=== PATIENT | male | born 1980 | race Caucasian/White ===

== ENCOUNTER 2016-02-22 10:31 | Emergency (ER) | payer OTHER ==
--- NOTE | 2016-02-22 11:00 | Emergency Department Record ---
History of Present Illness - General Chief Complaint: Difficulty Breathing Stated Complaint: TATY/CHEST PAIN/COLD Time Seen by Provider: 02/22/16 11:00 Source: Patient Mode of Arrival: Ambulatory Limitations: No limitations - History of Present Illness Initial Comments: The patient is here with a one day hx of cough, congestion, and sputum production. He has been ill for about a month with a sinus infection and then yesterday developed a bad cough with colored sputum. He feels like his lungs are full and he is having intermittent TATY with congestion. He also is having chest burning when coughing and a mild pleuritic CP but denies any fever, chills , ODOM or sharp stabbing back pain. The patient does have a hx of mild asthma and feels like he is developing an attack. MD Complaint: Cough Onset/Timin -: Hour(s) Radiation: Other Severity scale (1-10): 4 Quality: Other Consistency: Intermittent Improves With: Nothing Worsens With: Nothing Known History Of: Asthma Context: Other Associated Symptoms: Chest pain, Cough, Nausea/vomiting, Sputum production, Other Treatments Prior to Arrival: Bronchodilator Treatment Prior to Arrival Comment:: Inhaler - Related Data Home Oxygen Therapy: No Home Medications Medication Instructions Recorded Confirmed Last Taken Lisinopril [Zestril] 10 mg PO DAILY 07/01/14 02/22/16 02/22/16 Multivitamin [Multi-Vitamin Daily] 1 each PO DAILY 08/06/14 02/22/16 02/22/16 Albuterol Sulfate [Ventolin Hfa] 1 - 2 puff IH .EVERY 4-6 HOURS PRN 02/22/1602/21/16 Previous Rx's Medication Instructions Recorded Doxycycline Monohydrate [Mondoxyne 100 mg PO BID #20 capsule 02/22/16 Nl] Prednisone [Prednisone 20Mg] 40 mg PO DAILY #8 tab 02/22/16 Allergies Allergy/AdvReac Type Severity Reaction Status Date / Time Sulfa (Sulfonamide Allergy ANAPHYLAXIS Verified 02/22/16 10:47 Antibiotics) Travel Screening - Travel/Exposure Within Last 30 Days Have you traveled within the last 30 days?: No Review of Systems Constitutional: Denies: Chills, Fever Eyes: Denies: Eye discharge ENT: Denies: Congestion Respiratory: Denies: Cough, Dyspnea Past Medical History - SOCIAL HISTORY Smoking Status: Never smoker Alcohol Use: None Drug Use: None - RESPIRATORY Hx Respiratory Disorders: Yes Hx Asthma: Yes (seasonal) Hx Bronchitis: Yes Comment:: frequent sinus infections - CARDIOVASCULAR Hx Cardio Disorders: Yes Hx Hypertension: Yes - NEURO Hx Neuro Disorders: Yes Hx Headaches: Yes (cluster) - GI Hx GI Disorders: No - Hx Genitourinary Disorders: No - ENDOCRINE Hx Endocrine Disorders: No - MUSCULOSKELETAL Hx Musculoskeletal Disorders: Yes Hx Back Injury: Yes - PSYCH Hx Psych Problems: No - HEMATOLOGY/ONCOLOGY Hx Hematology/Oncology Disorders: No Family Medical History Any Significant Family History?: Yes Hx Diabetes: Grandparents Hx Heart Disease: Grandparents Physical Exam - General General Appearance: Alert, Oriented x3, Cooperative, No acute distress - Head Head exam: Atraumatic, Normocephalic, Normal inspection - Eye Eye exam: Normal appearance, PERRL - ENT Throat exam: Tonsillar erythema, Tonsillomegaly. negative: Normal inspection, Tonsillar exudate, R peritonsillar mass, L peritonsillar mass - Neck Neck exam: Normal inspection, Full ROM. negative: Lymphadenopathy, Meningismus , Tenderness - Respiratory Respiratory exam: Normal lung sounds bilaterally. negative: Decreased breath sounds, Respiratory distress, Rhonchi, Stridor, Wheezes - Cardiovascular Cardiovascular Exam: Regular rate, Normal rhythm, Normal heart sounds, Tachycardia - GI/Abdominal GI/Abdominal exam: Soft, Normal bowel sounds. negative: Tenderness - Extremities Extremities exam: Normal inspection, Full ROM, Normal capillary refill. negative: Tenderness - Neurological Neurological exam: Alert, Normal gait, Oriented X3. negative: Abnormal gait, Motor sensory deficit Course Vital Signs 02/22/16 10:37 Temperature 98.4 F Pulse Rate 116 H Respiratory 16 Rate Blood Pressure 139/95 Pulse Ox 97 - Reevaluation(s) Reevaluation #1: The patient is doing better and states his chest discomfort is less with coughing. 02/22/16 12:57 Reevaluation #2: The patient is doing much better at this time. He denies any pain or discomfort at this time when not coughing. He is resting comfortably and feels comfortable going home. 02/22/16 13:12 Reevaluation #3: The patient is doing much better at this time. His BP is elevated but he has not taken his Lisinopril today and his HR is still elevated but I feel that is most likely due to his Duoneb treatment. He is resting and ambulating comfortably and feels MUCH better and is ready for home. The patient also now has a fever which could be adding to his tachycardia. He was instructed to take Tylenol at home. 02/22/16 13:20 02/22/16 13:23 Medical Decision Making - Data Complexity MDM Data: Labs Ordered and/or Reviewed, X-Ray Ordered and/or Reviewed, EKG Ordered and/or Reviewed - Lab Data Result diagrams: 02/22/16 11:22 02/22/16 10:50 - EKG Data -: EKG Interpreted by Me EKG: No Acute Changes - Radiology Data Radiology results: Report reviewed (CXR: Neg.) Disposition Disposition: Discharge Clinical Impression: Upper respiratory infection, acute Disposition: Home, Self-Care Condition: (1) Good Instructions: Upper Respiratory Infection (ED) Additional Instructions: Please continue your regular medicines. Take the Doxycycline and Prednisone as directed. Please see your PCP for recheck if not better in 3 days. Return to the ER for any increased pain, trouble breathing, fever or worsening cough. Prescriptions: Doxycycline Monohydrate [Mondoxyne Nl] 100 mg PO BID #20 capsule Prednisone [Prednisone 20Mg] 40 mg PO DAILY #8 tab Forms: Patient Portal Access Time of Disposition: 13:10
[2016-02-22] MEDS ORDERED: PREDNISONE 20 MG TAB PO ONE (11:19)
[2016-02-22] MEDS ORDERED: IPRATROPIUM/ALBUTEROL (0.5MG/3MG) NEB INH ONE (11:19)
[2016-02-22] MEDS ORDERED: 0.9 % SODIUM CHLORIDE 1,000 ML BAG IV ONE (11:26)
[2016-02-22 11:37] LABS: BASO % 1.1 % (0-6); EOS % 6.1 % (0-6); GRAN % 77.2 % (47-80); HEMATOCRIT 44.3 % (42.0-52.0); LYMPH % 8.3 % (16-45); MEAN CORPUSCULAR HEMOGLOBIN 28.8 pg (27-33); MEAN CORPUSCULAR HGB CONC 33.9 g/dl (32-36); MEAN PLATELET VOLUME 10.2 fl (7.4-10.4); MONO % 7.3 % (0-9); PLATELET COUNT 285 K/uL (130-400); RED BLOOD COUNT 5.21 M/uL (4.40-5.70); RED CELL DISTRIBUTION WIDTH 12.7 % (11.5-14.5); WHITE BLOOD COUNT W/O DIFF 9.5 K/uL (4.2-12.2)
[2016-02-22 11:40] LABS: ALB/GLOB RATIO 1.6 (1.1-1.8); ALBUMIN 4.4 gm/dL (3.5-5.0); ALKALINE PHOSPHATASE 81 U/L (38-126); ALT/SGPT 66 U/L (21-72); ANION GAP 15.2 (7-16); AST/SGOT 33 U/L (17-59); BLOOD UREA NITROGEN 9 mg/dL (9-20); CARBON DIOXIDE 23.8 mmol/L (22-30); CREATINE PHOSPHOKINASE 276 U/L (55-170); CREATININE 0.9 mg/dL (0.66-1.25); EST GLOMERULAR FILTRATION RATE > 60 ml/min; GLUCOSE,RANDOM 87 mg/dL (70-110); TOTAL PROTEIN 7.1 gm/dL (6.3-8.2)
[2016-02-22 11:55] LABS: TROPONIN I < 0.012 ng/mL (0.00-0.034)
[2016-02-22] MEDS ORDERED: ONDANSETRON HCL IV 4 MG/2 ML VIAL IVP ONE (12:28)
[2016-02-22] MEDS ORDERED: SUCRALFATE 1 G/10 ML UD PO ONE (12:28)
--- NOTE | 2016-02-26 07:40 | RADIOLOGY REPORT ---
EXAM: CHEST, TWO VIEWS HISTORY: COUGH. TECHNIQUE: Two views of the chest were obtained. Comparison: None. FINDINGS: The heart is not enlarged. The lungs and pleural spaces are clear. IMPRESSION: NO ACUTE CARDIOPULMONARY ABNORMALITY. JOB NUMBER: [id number] MTDD
== END 2016-02-22 13:23 | disposition home or self-care (01) ==
LOC: ER 10:31
DX: J06.9 Acute upper respiratory infection, unspecified (principal); R07.1 Chest pain on breathing; R11.2 Nausea with vomiting, unspecified; R05 Cough; I10 Essential (primary) hypertension
CPT/HCPCS: 99284 ×2; 96374; 82550; 85025; 82553; 84484; 80053; 85379; 71020; 94640; 93005; 93010; J2405; J7512; J7030

== ENCOUNTER 2016-02-24 06:56 | Emergency (ER) | payer OTHER ==
--- NOTE | 2016-02-24 07:20 | Emergency Department Record ---
History of Present Illness - General Chief Complaint: Cough Stated Complaint: COUGH/TATY Time Seen by Provider: 02/24/16 07:11 Source: Patient Mode of Arrival: Ambulatory Limitations: No limitations - History of Present Illness Initial Comments: 35 yo male presents with cough, congestion, drainage. He was seen in the ED on 02/21. He states he is not getting better yet. He continues to have low grade fevers, sore throat, cough with sputum. He did not have a Flu shot this year. He feels tired and lightheaded with standing or activity. It hurts to cough. Multiple other individuals have been sick with similar symptoms around him. PCP is Dr Arana. Complaint: Cough, Fever, Nasal congestion, Rhinorrhea, Sinus pain, Sore throat Onset/Timin -: Days(s) (3) Severity: Moderate Consistency: Constant Improves With: Nothing Worsens With: Other (cough) Associated Symptoms: Cough, Fever, Headache, Hoarseness, Myalgias, Nasal congestion, Rhinorrhea, Sore throat Treatments Prior to Arrival: Antibiotics - Related Data Home Medications Medication Instructions Recorded Confirmed Last Taken Lisinopril [Zestril] 10 mg PO DAILY 07/01/14 02/24/16 02/23/16 Multivitamin [Multi-Vitamin Daily] 1 each PO DAILY 08/06/14 02/24/16 02/23/16 Albuterol Sulfate [Ventolin Hfa] 1 - 2 puff IH .EVERY 4-6 HOURS PRN 02/22/1602/23/16 Previous Rx's Medication Instructions Recorded Doxycycline Monohydrate [Mondoxyne 100 mg PO BID #20 capsule 02/22/16 Nl] Prednisone [Prednisone 20Mg] 40 mg PO DAILY #8 tab 02/22/16 Ondansetron [Zofran Odt] 4 mg PO Q8H #20 tab.rapdis 02/24/16 Oseltamivir Phosphate [Tamiflu] 75 mg PO BID #10 capsule 02/24/16 Allergies Allergy/AdvReac Type Severity Reaction Status Date / Time Sulfa (Sulfonamide Allergy ANAPHYLAXIS Verified 02/24/16 07:09 Antibiotics) Travel Screening - Travel/Exposure Within Last 30 Days Have you traveled within the last 30 days?: No Review of Systems Constitutional: Reports: Chills, Fever, Malaise, Weakness Eyes: Denies: Eye discharge, Eye pain, Vision change ENT: Reports: Congestion, Throat pain Respiratory: Reports: Cough Cardiovascular: Reports: Chest pain (with coughing) Endocrine: Reports: Fatigue Gastrointestinal: Reports: Nausea. Denies: Abdominal pain, Diarrhea, Vomiting Genitourinary: Denies: Dysuria, Frequency, Hematuria Musculoskeletal: Reports: Myalgia. Denies: Arthralgia, Joint swelling, Neck pain Skin: Denies: Bruising, Change in color Neurological: Reports: Headache (sinus pressure). Denies: Confusion, Numbness, Paresthesias, Tremors, Weakness Hematological/Lymphatic: Denies: Anemia, Easy bleeding, Easy bruising, Swollen glands Past Medical History - SOCIAL HISTORY Smoking Status: Never smoker Alcohol Use: None Drug Use: None - RESPIRATORY Hx Respiratory Disorders: Yes Hx Asthma: Yes (seasonal) Hx Bronchitis: Yes Comment:: frequent sinus infections - CARDIOVASCULAR Hx Cardio Disorders: Yes Hx Hypertension: Yes - NEURO Hx Neuro Disorders: Yes Hx Headaches: Yes (cluster) - GI Hx GI Disorders: No - Hx Genitourinary Disorders: No - ENDOCRINE Hx Endocrine Disorders: No Hx Diabetes: No Hx Thyroid Disease: No - MUSCULOSKELETAL Hx Musculoskeletal Disorders: Yes Hx Back Injury: Yes - PSYCH Hx Psych Problems: No - HEMATOLOGY/ONCOLOGY Hx Hematology/Oncology Disorders: No Family Medical History Any Significant Family History?: Yes Hx Diabetes: Grandparents Hx Heart Disease: Grandparents Physical Exam - General General Appearance: Alert, Oriented x3, Cooperative, No acute distress Limitations: No limitations - Head Head exam: Atraumatic, Normal inspection - Eye Eye exam: Normal appearance, PERRL. negative: Conjunctival injection, Periorbital swelling - ENT ENT exam: Normal exam, Mucous membranes moist, Normal external ear exam, Normal orophraynx, TM's normal bilaterally Ear exam: Normal external inspection. negative: External canal tenderness Nasal Exam: Discharge Mouth exam: Normal external inspection, Tongue normal Teeth exam: Normal inspection. negative: Dental caries Throat exam: Tonsillar erythema. negative: Tonsillomegaly, Tonsillar exudate, R peritonsillar mass, L peritonsillar mass - Neck Neck exam: Normal inspection, Full ROM. negative: Tenderness - Respiratory Respiratory exam: Normal lung sounds bilaterally. negative: Accessory muscle use, Prolonged expiratory, Respiratory distress, Wheezes - Cardiovascular Cardiovascular Exam: Normal rhythm, Normal heart sounds, Tachycardia - GI/Abdominal GI/Abdominal exam: Soft. negative: Tenderness - Rectal Rectal exam: Deferred - exam: Deferred - Extremities Extremities exam: Normal inspection, Full ROM, Normal capillary refill. negative: Tenderness - Back Back exam: Reports: Normal inspection, Full ROM. Denies: Muscle spasm, Rash noted, Tenderness - Neurological Neurological exam: Alert, Normal gait, Oriented X3, Reflexes normal - Psychiatric Psychiatric exam: Normal affect, Normal mood - Skin Skin exam: Dry, Intact, Normal color, Warm Course Vital Signs 02/24/16 07:05 Temperature 99.1 F Pulse Rate [ 118 H Pulse Ox Probe] Respiratory 18 Rate Blood Pressure 133/92 [Left Arm] Pulse Ox 95 - Reevaluation(s) Reevaluation #1: The labs were reviewed No acute changes HR improved with IVF 02/24/16 07:57 EMR reviewed No acute changes on initial visit CXR 02/24/16 07:57 Reevaluation #2: He is Influenza A Positive 02/24/16 08:00 Reevaluation #3: The CXR was reviewed No acute changes from the prior DC home with precautions for influenza 02/24/16 08:22 Medical Decision Making - Lab Data Result diagrams: 02/24/16 07:26 02/24/16 07:26 Disposition Disposition: Discharge Clinical Impression: Influenza A Disposition: Home, Self-Care Condition: (1) Good Instructions: Influenza, Cardiology Consultant (GEN) Additional Instructions: Rest and stay well hydrated Return if worse You are contagious so cover cough, avoid close contacts, and wash hands frequently Prescriptions: Oseltamivir Phosphate [Tamiflu] 75 mg PO BID #10 capsule Ondansetron [Zofran Odt] 4 mg PO Q8H #20 tab.rapdis Forms: Patient Portal Access Time of Disposition: 08:03
[2016-02-24] MEDS ORDERED: ONDANSETRON HCL IV 4 MG/2 ML VIAL IVP ONE (07:22)
[2016-02-24] MEDS ORDERED: 0.9 % SODIUM CHLORIDE 1,000 ML BAG IV ONE (07:22)
[2016-02-24 07:34] LABS: BASO % 1.3 % (0-6); EOS % 6.4 % (0-6); GRAN % 65.5 % (47-80); HEMATOCRIT 45.4 % (42.0-52.0); LYMPH % 14.1 % (16-45); MEAN CELL VOLUME 86.5 fl (81-97); MEAN CORPUSCULAR HEMOGLOBIN 28.6 pg (27-33); MEAN PLATELET VOLUME 10.1 fl (7.4-10.4); MONO % 12.7 % (0-9); PLATELET COUNT 274 K/uL (130-400); RED BLOOD COUNT 5.25 M/uL (4.40-5.70); WHITE BLOOD COUNT W/O DIFF 8.6 K/uL (4.2-12.2)
[2016-02-24 07:46] LABS: ANION GAP 14.7 (7-16); BLOOD UREA NITROGEN 7 mg/dL (9-20); CARBON DIOXIDE 23.3 mmol/L (22-30); CREATININE 0.9 mg/dL (0.66-1.25); EST GLOMERULAR FILTRATION RATE > 60 ml/min; GLUCOSE,RANDOM 93 mg/dL (70-110)
[2016-02-24 07:50] LABS: INFLUENZA A POSITIVE (NEGATIVE); INFLUENZA B NEGATIVE (NEGATIVE); STREP A SCREEN NEGATIVE (NEGATIVE)
--- NOTE | 2016-02-27 09:24 | RADIOLOGY REPORT ---
EXAM: CHEST, TWO VIEWS HISTORY: COUGH AND FEVER. TECHNIQUE: Two views of the chest were obtained. Comparison: Chest x-ray 02/22/16. FINDINGS: The lungs are clear. The cardiomediastinal silhouette, diaphragm and osseous structures are unremarkable for age. IMPRESSION: NEGATIVE CHEST EXAMINATION. JOB NUMBER: [id number] MTDD
== END 2016-02-24 08:41 | disposition home or self-care (01) ==
LOC: ER 06:56
DX: J10.1 Influenza due to other identified influenza virus with other respiratory manifestations (principal); R51 Headache; I10 Essential (primary) hypertension
CPT/HCPCS: 99284 ×2; 96374; 85025; 80048; 87880; 87400; 71020; J2405; J7030

== ENCOUNTER 2017-10-03 08:15 | Emergency (ER) | payer OTHER ==
--- NOTE | 2017-10-03 08:44 | Emergency Department Record ---
History of Present Illness - General Chief complaint: Fatigue and Weakness Stated complaint: FATIGUE Time Seen by Provider: 10/03/17 08:37 Source: Patient Mode of Arrival: Ambulatory Limitations: No limitations - History of Present Illness Initial comments: 37 yo male presents with fatigue. He states over the weekend he has become more tired and no energy. The symptoms started Tuesday. He states today he had no energy after working this morning. He has some sinus congestion and drainage. He states he can get this way with his allergies. Mild non productive cough. No chest pain. No pain with inspiration. No calf pain or swelling. No abdominal pain. No nausea or vomiting. No sweating. No fevers or chills. Dr Arana is his PCP. He is a non smoker and rarely drinks alcohol. Onset/Timin -: Days(s) Severity: Moderate Severity scale (1-10): 4 Quality: Aching Consistency: Intermittent Improves with: Rest Worsens with: Exertion - Trevor Coma Scale Eye Response: (4) Open spontaneously Motor Response: (6) Obeys commands Verbal Response: (5) Oriented Tom Total: 15 - Related Data Home Medications Medication Instructions Recorded Confirmed Last Taken Albuterol Sulfate [Proair Hfa] 1 - 2 puff IH .EVERY 4-6 HOURS PRN 10/03/1710/03 Unknown Cetirizine HCl [Zyrtec] 10 mg PO DAILY 10/03/17 10/03/17 1 Day Ago ~10/02/17 Allergies Allergy/AdvReac Type Severity Reaction Status Date / Time Sulfa (Sulfonamide Allergy ANAPHYLAXIS Verified 10/03/17 08:30 Antibiotics) Travel Screening - Travel/Exposure Within Last 30 Days Have you traveled within the last 30 days?: No - Travel/Exposure Within Last Year Have you traveled outside the [place] in the last year?: No - Additonal Travel Details Have you been exposed to anyone with a communicable illness?: No - Travel Symptoms Symptom Screening: None Review of Systems Constitutional: Reports: Malaise, Weakness. Denies: Chills, Fever Eyes: Denies: Eye discharge, Eye pain, Vision change ENT: Reports: Congestion. Denies: Dental pain, Ear pain, Epistaxis, Throat pain Respiratory: Reports: Cough. Denies: Dyspnea, Hemoptysis, Stridor, Wheezes Cardiovascular: Denies: Arrhythmia, Chest pain, Dyspnea on exertion, Edema, Palpitations, Syncope Endocrine: Denies: Polydipsia, Polyuria Gastrointestinal: Denies: Abdominal pain, Diarrhea, Nausea, Vomiting Genitourinary: Denies: Dysuria, Frequency, Hematuria, Urgency Musculoskeletal: Denies: Arthralgia, Back pain, Joint swelling, Myalgia, Neck pain Skin: Denies: Bruising, Change in color, Lesions, Rash Neurological: Reports: Weakness (generalized). Denies: Abnormal gait, Confusion , Headache, Numbness, Tingling, Vertigo Psychiatric: Denies: Anxiety Hematological/Lymphatic: Denies: Blood Clots, Easy bleeding, Easy bruising, Swollen glands Past Medical History - SOCIAL HISTORY Smoking Status: Never smoker Alcohol Use: None, Rare Drug Use: None - RESPIRATORY Hx Respiratory Disorders: Yes Hx Asthma: Yes (seasonal) Hx Bronchitis: Yes Comment:: frequent sinus infections - CARDIOVASCULAR Hx Cardio Disorders: Yes Hx Hypertension: Yes - NEURO Hx Neuro Disorders: Yes Hx Headaches: Yes (cluster) - GI Hx GI Disorders: No - Hx Genitourinary Disorders: No - ENDOCRINE Hx Endocrine Disorders: No Hx Diabetes: No Hx Thyroid Disease: No - MUSCULOSKELETAL Hx Musculoskeletal Disorders: Yes Hx Back Injury: Yes - PSYCH Hx Psych Problems: No - HEMATOLOGY/ONCOLOGY Hx Hematology/Oncology Disorders: No Family Medical History Any Significant Family History?: Yes Hx Diabetes: Grandparents Hx Heart Disease: Grandparents Physical Exam - General General Appearance: Alert, Oriented x3, Cooperative, No acute distress Limitations: No limitations - Head Head exam: Atraumatic, Normal inspection - Eye Eye exam: Normal appearance, PERRL. negative: Conjunctival injection, Periorbital swelling, Scleral icterus - ENT ENT exam: Normal exam, Mucous membranes moist, Normal orophraynx Ear exam: Normal external inspection Nasal Exam: Discharge, Sinus tenderness. negative: Normal inspection, Active bleeding, Dried blood, Foreign body Mouth exam: Normal external inspection Teeth exam: Normal inspection Throat exam: Normal inspection - Neck Neck exam: Normal inspection, Full ROM. negative: Tenderness - Respiratory Respiratory exam: Normal lung sounds bilaterally. negative: Respiratory distress - Cardiovascular Cardiovascular Exam: Regular rate, Normal rhythm, Normal heart sounds. negative : Bradycardia, Diastolic murmur, Irregular rhythm, Systolic murmur, Tachycardia Peripheral Pulses: 2+: Radial (R), Radial (L) - GI/Abdominal GI/Abdominal exam: Soft. negative: Tenderness - Rectal Rectal exam: Deferred - exam: Deferred - Extremities Extremities exam: Normal inspection, Full ROM, Normal capillary refill. negative: Calf tenderness, Pedal edema, Tenderness - Back Back exam: Reports: Full ROM. Denies: CVA tenderness (R), CVA tenderness (L) - Neurological Neurological exam: Abnormal gait, Alert, CN II-XII intact, Normal gait, Oriented X3. negative: Altered, Motor sensory deficit, Reflexes normal - Psychiatric Psychiatric exam: Normal affect, Normal mood - Skin Skin exam: Dry, Intact, Normal color, Warm Course Vital Signs 10/03/17 08:19 Temperature 97.9 F Pulse Rate 85 Respiratory 18 Rate Blood Pressure 136/97 Pulse Ox 96 - Reevaluation(s) Reevaluation #1: The patient is well appearing Normal vitals. Normal HR, Temp, Pulse Ox. No tachycardia or hypoxia 10/03/17 08:55 EKG#1 0850 sinus rhythm rate is 78 intervals normal axis normal ST normal No acute changes on the EKG or new abnormal changes from prior 10/03/17 09:39 No acute changes on the CBC No acute changes on the CMP The TSH is normal 10/03/17 10:00 Waiting for UA 10/03/17 10:18 The UA is negative Stable for DC to follow up with his PCP We discussed reasons to return and close follow up with the PCP.after this ED visit Medical Decision Making - Lab Data Result diagrams: 10/03/17 08:40 10/03/17 08:40 Disposition Disposition: Discharge Clinical Impression: Fatigue Qualifiers: Fatigue type: unspecified Qualified Code(s): R53.83 - Other fatigue Disposition: Home, Self-Care Condition: (1) Good Instructions: Fatigue (ED) Additional Instructions: Rest and stay well hydrated today Call Dr Arana today for close follow up of your symptoms Return if worse or any new concerns that develop. Forms: Patient Portal Access Time of Disposition: 09:41 Quality - Quality Measures Quality Measures: N/A - Blood Pressure Screening Does Patient Have Any of the Following: Active Dx of HTN Blood Pressure Classification: Hypertensive Reading Systolic Measurement: 136 Diastolic Measurement: 97 Screening for High Blood Pressure: Patient Exclusion, Hx of HTN [G9744]
[2017-10-03 09:01] LABS: EOS % 9.5 % (0-6); GRAN % 57.7 % (47-80); HEMATOCRIT 45.8 % (42.0-52.0); HEMOGLOBIN 15.1 gm/dl (14.0-18.0); LYMPH % 25.6 % (16-45); MEAN CELL VOLUME 85.4 fl (81-97); MEAN CORPUSCULAR HEMOGLOBIN 28.2 pg (27-33); MEAN PLATELET VOLUME 9.6 fl (7.4-10.4); MONO % 6.2 % (0-9); PLATELET COUNT 302 K/uL (130-400); RED BLOOD COUNT 5.36 M/uL (4.40-5.70); RED CELL DISTRIBUTION WIDTH 13.1 % (11.5-14.5); WHITE BLOOD COUNT W/O DIFF 7.8 K/uL (4.2-12.2)
[2017-10-03 09:16] LABS: BLOOD UREA NITROGEN 11 mg/dL (6-20); CREATININE 0.8 mg/dL (0.7-1.2); EST GLOMERULAR FILTRATION RATE > 60 mL/min
[2017-10-03 09:17] LABS: TOTAL PROTEIN 6.6 g/dL (6.6-8.7)
[2017-10-03 09:19] LABS: GLUCOSE,RANDOM 93 mg/dL (74-109)
[2017-10-03 09:21] LABS: ALT/SGPT 42 U/L (<41); AST/SGOT 23 U/L (10.0-50.0)
[2017-10-03 09:22] LABS: ALB/GLOB RATIO 1.8 (1.1-1.8); ALBUMIN 4.2 g/dL (4.0-5.0); ALKALINE PHOSPHATASE 72 U/L (40-129)
[2017-10-03 09:35] LABS: THYROID STIMULATING HORMONE 2.14 uIU/mL (0.270-4.20)
[2017-10-03 10:14] LABS: URINE APPEARANCE CLEAR; URINE BILIRUBIN NEGATIVE (NEGATIVE); URINE BLOOD NEGATIVE (NEGATIVE); URINE COLOR YELLOW; URINE GLUCOSE (UA) NEGATIVE (NEGATIVE); URINE KETONE NEGATIVE (NEGATIVE); URINE LEUKOCYTE ESTERASE NEGATIVE (NEGATIVE); URINE NITRITE NEGATIVE (NEGATIVE); URINE PROTEIN NEGATIVE (NEGATIVE); URINE UROBILINOGEN 0.2 E.U./dL (0.20 - 1.00)
--- NOTE | 2017-10-04 20:24 | RADIOLOGY REPORT ---
EXAM: CHEST 2 VIEWS HISTORY: PAINFUL INSPIRATION. FATIGUE. TECHNIQUE: Upright PA and lateral views of the chest are obtained. COMPARISON: Two-view chest radiographic examination dated 11/20/2016. FINDINGS: The heart is not enlarged and the pulmonary vasculature is nondilated. No definite new abnormal lung parenchymal opacity is seen, given differences in technique. No costophrenic angle blunting or pneumothorax. Mild degenerative endplate changes within the lower thoracic spine. IMPRESSION: NO CONVINCING RADIOGRAPHIC EVIDENCE OF ACUTE CARDIOPULMONARY DISEASE WITHOUT SIGNIFICANT CHANGE FROM 11/20/2016, GIVEN DIFFERENCES IN TECHNIQUE. JOB NUMBER: [id number] MTDD
== END 2017-10-03 10:31 | disposition home or self-care (01) ==
LOC: ER 08:15
DX: R53.83 Other fatigue (principal); R53.1 Weakness; I10 Essential (primary) hypertension
CPT/HCPCS: 71046; 80053; 81003; 84443; 85025; 93005; 93010; 99284

== ENCOUNTER 2018-12-09 18:18 | Emergency (ER) | payer OTHER ==
--- NOTE | 2018-12-09 18:25 | Emergency Department Record ---
History of Present Illness - General Chief complaint: Allergic Reaction Stated complaint: RACTION TO MEDS Time Seen by Provider: 12/09/18 18:19 Source: Patient Mode of Arrival: Ambulatory Limitations: No limitations - History of Present Illness Initial Comments: 38 yo male presents to ED for evaluation of progressively worsening swelling to the lower extremities bilaterally following an increase in the patient's Lisinopril 3 weeks ago. Patient denies shortness of breath or chest discomfort symptoms. Patient denies history of DVT or calf pain symptoms, just reports swelling from edema bilaterally. Patient denies health problems other than HTN. MD Complaint: Other Onset/Timin -: Week(s) Exposure: Medication Severity: Moderate Treatment Prior to Arrival: None Previous Allergy History: None - Related Data Previous Rx's Medication Instructions Recorded Furosemide [Lasix] 40 mg PO DAILY #5 tablet 12/09/18 Allergies Allergy/AdvReac Type Severity Reaction Status Date / Time Sulfa (Sulfonamide Allergy ANAPHYLAXIS Verified 12/09/18 18:27 Antibiotics) Review of Systems Constitutional: Denies: Chills, Fever, Malaise, Night sweats Eyes: Denies: Eye discharge, Eye pain ENT: Denies: Congestion, Ear pain, Epistaxis Respiratory: Denies: Cough, Dyspnea Cardiovascular: Reports: Edema. Denies: Chest pain, Dyspnea on exertion Endocrine: Denies: Fatigue, Heat or cold intolerance Gastrointestinal: Denies: Abdominal pain, Nausea, Vomiting Musculoskeletal: Denies: Arthralgia, Back pain Skin: Denies: Bruising, Change in color, Rash Neurological: Denies: Abnormal gait, Confusion, Headache, Tingling, Tremors Psychiatric: Denies: Anxiety Hematological/Lymphatic: Denies: Anemia, Blood Clots Past Medical History - SOCIAL HISTORY Smoking Status: Never smoker Drug Use: None - RESPIRATORY Hx Respiratory Disorders: Yes Hx Asthma: Yes (seasonal) Hx Bronchitis: Yes Comment:: frequent sinus infections - CARDIOVASCULAR Hx Cardio Disorders: Yes Hx Hypertension: Yes - NEURO Hx Neuro Disorders: Yes Hx Headaches: Yes (cluster) - GI Hx GI Disorders: No - Hx Genitourinary Disorders: No - ENDOCRINE Hx Endocrine Disorders: No Hx Diabetes: No Hx Thyroid Disease: No - MUSCULOSKELETAL Hx Musculoskeletal Disorders: Yes Hx Back Injury: Yes - PSYCH Hx Psych Problems: No - HEMATOLOGY/ONCOLOGY Hx Hematology/Oncology Disorders: No Family Medical History Hx Diabetes: Grandparents Hx Heart Disease: Grandparents Physical Exam - General General Appearance: Alert, Oriented x3, Cooperative, No acute distress Limitations: No limitations - Head Head exam: Atraumatic, Normocephalic, Normal inspection Head exam detail: negative: Abrasion, Contusion, Diaz's sign, General tenderness, Hematoma, Laceration - Eye Eye exam: Normal appearance. negative: Conjunctival injection, Periorbital swelling, Periorbital tenderness, Scleral icterus - ENT Ear exam: negative: Auricular hematoma, Auricular trauma Nasal Exam: negative: Active bleeding, Discharge, Dried blood, Foreign body Mouth exam: negative: Drooling, Laceration, Muffled voice, Tongue elevation - Neck Neck exam: Normal inspection. negative: Meningismus, Tenderness - Respiratory Respiratory exam: Normal lung sounds bilaterally. negative: Respiratory distress, Rhonchi, Stridor, Wheezes - Cardiovascular Cardiovascular Exam: Regular rate, Normal rhythm, Normal heart sounds - GI/Abdominal GI/Abdominal exam: Soft. negative: Rebound, Rigid, Tenderness - Rectal Rectal exam: Deferred - exam: Deferred - Extremities Extremities exam: Pedal edema (2+ lower extremity edema bilaterally). negative: Calf tenderness, Tenderness - Back Back exam: Denies: CVA tenderness (R), CVA tenderness (L) - Neurological Neurological exam: Alert, Normal gait, Oriented X3 - Psychiatric Psychiatric exam: Normal affect, Normal mood - Skin Skin exam: Normal color. negative: Abrasion Type of lesion: negative: abrasion Course - Reevaluation(s) Reevaluation #1: 12/09/18 18:54 Laboratory studies were reviewed and appear grossly unremarkable for an acute process. Will initiate Lasix as directed. Patient appears stable for discharge at this time with instructions to follow-up with Dr. Arana in 3-5 days as directed. Medical Decision Making - Lab Data Result diagrams: 12/09/18 18:30 12/09/18 18:30 Disposition Disposition: Discharge Clinical Impression: Peripheral edema Hypertension Qualifiers: Hypertension type: unspecified Qualified Code(s): I10 - Essential (primary) hypertension Disposition: Home, Self-Care Condition: (2) Stable Instructions: Leg Edema (ED) Additional Instructions: Return to ED if your symptoms worsen or if you have any concerns. Lasix as directed. Elevated the lower extremities to reduce swelling. Follow-up with Dr. Arana in 3-5 days as directed. Prescriptions: Furosemide [Lasix] 40 mg PO DAILY #5 tablet Forms: Patient Portal Access Time of Disposition: 18:56 Quality - Quality Measures Quality Measures: N/A - Blood Pressure Screening Does Patient Have Any of the Following: Active Dx of HTN Blood Pressure Classification: Hypertensive Reading Systolic Measurement: 140 Diastolic Measurement: 109 Screening for High Blood Pressure: Patient Exclusion, Hx of HTN [G9744]
[2018-12-09 18:38] LABS: ABSOLUTE NEUTROPHIL COUNT 5.96; EOS % 7.6 % (0-6); GRAN % 56.7 % (47-80); HEMATOCRIT 45.6 % (42.0-52.0); HEMOGLOBIN 14.9 gm/dl (14.0-18.0); MEAN CORPUSCULAR HEMOGLOBIN 27.4 pg (27-33); MEAN CORPUSCULAR HGB CONC 32.7 g/dl (32-36); MEAN PLATELET VOLUME 9.6 fl (7.4-10.4); MONO % 8.7 % (0-9); PLATELET COUNT 363 K/uL (130-400); RED BLOOD COUNT 5.43 M/uL (4.40-5.70); RED CELL DISTRIBUTION WIDTH 13.6 % (11.5-14.5); WHITE BLOOD COUNT W/O DIFF 10.5 K/uL (4.2-12.2)
[2018-12-09 18:50] LABS: BLOOD UREA NITROGEN 11 mg/dL (6-20); CREATININE 0.8 mg/dL (0.7-1.2); EST GLOMERULAR FILTRATION RATE > 60 mL/min
[2018-12-09 18:52] LABS: GLUCOSE,RANDOM 92 mg/dL (74-109)
[2018-12-09] MEDS ORDERED: FUROSEMIDE 40 MG TABLET PO ONE (18:56)
== END 2018-12-09 19:04 | disposition home or self-care (01) ==
LOC: ER 18:18
DX: R60.0 Localized edema (principal); I10 Essential (primary) hypertension
CPT/HCPCS: 80048; 85025; 99283

== ENCOUNTER 2019-02-12 07:31 | Emergency (ER) | payer BC, OTHER ==
--- NOTE | 2019-02-12 07:44 | Emergency Department Record ---
History of Present Illness - General Chief complaint: Extremity Problem Stated complaint: THUMB INJURY Time Seen by Provider: 02/12/19 07:37 Source: Patient Mode of Arrival: Ambulatory Limitations: No limitations - History of Present Illness Initial comments: The patient is here due to a one day hx of R hand pain. He tripped on the stairs last evening and injured his hand and jammed his R thumb. It is mainly painful over the 1st MCP area and the web space between the 1st and 2nd MC bones. MD Complaint: Extremity pain Onset/Timin -: Days(s) Location: Right, Hand History of Same: No Radiation: None Severity scale (1-10): 8 Quality: Aching Consistency: Constant Improves with: Nothing Worsens with: Weight bearing Associated Symptoms: Denies other symptoms - Related Data Home Medications Medication Instructions Recorded Confirmed Last Taken Furosemide [Lasix] 20 mg PO DAILY 02/12/19 02/12/19 Unknown Potassium Chloride [Klor-Con] 10 meq PO DAILY 02/12/19 02/12/19 Unknown Allergies Allergy/AdvReac Type Severity Reaction Status Date / Time Sulfa (Sulfonamide Allergy ANAPHYLAXIS Verified 12/09/18 18:27 Antibiotics) Travel Screening - Travel/Exposure Within Last 30 Days Have you traveled within the last 30 days?: No Review of Systems Constitutional: Denies: Chills, Fever Past Medical History - SOCIAL HISTORY Smoking Status: Never smoker - RESPIRATORY Hx Respiratory Disorders: Yes Hx Asthma: Yes (seasonal) Hx Bronchitis: Yes Comment:: frequent sinus infections - CARDIOVASCULAR Hx Cardio Disorders: Yes Hx Hypertension: Yes - NEURO Hx Neuro Disorders: Yes Hx Headaches: Yes (cluster) - GI Hx GI Disorders: No - Hx Genitourinary Disorders: No - ENDOCRINE Hx Endocrine Disorders: No Hx Diabetes: No Hx Thyroid Disease: No - MUSCULOSKELETAL Hx Musculoskeletal Disorders: Yes Hx Back Injury: Yes - PSYCH Hx Psych Problems: No - HEMATOLOGY/ONCOLOGY Hx Hematology/Oncology Disorders: No Family Medical History Any Significant Family History?: Yes Hx Diabetes: Grandparents Hx Heart Disease: Grandparents Physical Exam - General General Appearance: Alert, Oriented x3, Cooperative, No acute distress - Head Head exam: Atraumatic, Normocephalic - Eye Eye exam: Normal appearance - Extremities Extremities exam: Normal inspection (There is no R hand swelling, bruising, or abrasions.), Full ROM (with pain over the R thumb and 2nd finger.), Normal cap illary refill, Tenderness (There is diffuse tenderness over the R 1st and 2nd MC bones. There is tenderness over the R 1st MCP joint ulnar collateral ligament but the joint does not appear to open up. ). negative: Joint swelling - Neurological Neurological exam: Alert. negative: Motor sensory deficit Course Vital Signs 02/12/19 07:32 Temperature 98.1 F Pulse Rate 93 H Respiratory 18 Rate Blood Pressure 133/96 Pulse Ox 96 - Reevaluation(s) Reevaluation #1: The patient's xrays are neg and he clearly has a R hand sprain. I did explain to him that I am worried about his R hand ulnar collateral ligament. The joint clearly does not appear to open up but I would like to splint the thumb for a week and have the joint rechecked by his PCP. If pain continues he may need to see a hand specialist. The patient is aware of the issues and will F/U. 02/12/19 08:38 Medical Decision Making - Data Complexity MDM Data: X-Ray Ordered and/or Reviewed - Radiology Data Radiology results: Report reviewed (R hand: Neg.) Disposition Disposition: Discharge Clinical Impression: Sprain of hand, right Qualifiers: Encounter type: initial encounter Qualified Code(s): S63.91XA - Sprain of unspecified part of right wrist and hand, initial encounter Disposition: Home, Self-Care Condition: (2) Stable Instructions: Hand Sprain (ED) Additional Instructions: Please use Tylenol or Motrin for pain and wear the splint for a week. Please have the R hand ligaments rechecked at the end of the week and have the 1st MCP ulnar collateral ligament re-evaluated then. Return to the ER for any worsening issues. Forms: Patient Portal Access Time of Disposition: 08:36 Quality - Quality Measures Quality Measures: N/A - Blood Pressure Screening View Details: Yes Does Patient Have Any of the Following: No Blood Pressure Classification: Hypertensive Reading Systolic Measurement: 133 Diastolic Measurement: 96 Screening for High Blood Pressure: < First Hypertensive BP, F/U Documented > [G8950] First Hypertensive Follow-up Interventions: Referral to alternative/primary care provider.
--- NOTE | 2019-02-12 08:30 | RADIOLOGY REPORT ---
EXAMINATION: Right Hand, Minimum Three Views EXAM DATE: 02/12/2019 8:23 AM TECHNIQUE: PA, lateral, and oblique INDICATION: Thumb injury COMPARISON: None ENCOUNTER: Initial FINDINGS: No acute fracture or dislocation evident. No significant degenerative spurring appreciated. IMPRESSION: No acute fracture. Dictated by: Edwardo Rico MD on 02/12/2019 8:25 AM. .
== END 2019-02-12 08:40 | disposition home or self-care (01) ==
LOC: ER 07:31
DX: S63.91XA Sprain of unspecified part of right wrist and hand, initial encounter (principal); W10.9XXA Fall (on) (from) unspecified stairs and steps, initial encounter; I10 Essential (primary) hypertension
CPT/HCPCS: 99283

== ENCOUNTER 2019-03-21 08:15 | Emergency (ER) | payer BC ==
--- NOTE | 2019-03-21 08:42 | Emergency Department Record ---
History of Present Illness - General Chief complaint: Vomiting Stated complaint: VOMITING Time Seen by Provider: 03/21/19 08:34 Source: Patient, RN notes reviewed Mode of Arrival: Ambulatory - History of Present Illness Initial comments: cough for 7 days and vomitied today times one and no diarrhea and he took alot of medication and his protein shake and vomited his has had vomiting and diarrhea all night and she is much worse than he is. He said he is here for his but he wanted to be checked too. He was up all night with his . Associated Symptoms: Cough, Nausea/vomiting - Related Data Home Medications Medication Instructions Recorded Confirmed Last Taken Naltrexone HCl/Bupropion HCl 1 each PO DAILY 03/21/19 03/21/19 03/21/19 [Contrave ER 8-90 mg Tablet] Allergies Allergy/AdvReac Type Severity Reaction Status Date / Time Sulfa (Sulfonamide Allergy ANAPHYLAXIS Verified 03/21/19 08:27 Antibiotics) Travel/Exposure Screening - Travel/Exposure Within Last 30 Days Have you traveled within the last 30 days?: No Review of Systems Reviewed: No additional complaints except as noted below Constitutional: Reports: As per HPI. Denies: Chills, Fever, Malaise, Night sweats, Weakness, Weight change Eyes: Reports: As per HPI. Denies: Eye discharge, Eye pain, Photophobia, Vision change ENT: Reports: As per HPI, Congestion. Denies: Dental pain, Ear pain, Epistaxis, Hearing loss, Throat pain Respiratory: Reports: As per HPI, Cough. Denies: Dyspnea, Hemoptysis, Stridor, Wheezes Cardiovascular: Reports: As per HPI. Denies: Arrhythmia, Chest pain, Dyspnea on exertion, Edema, Murmurs, Orthopnea, Palpitations, Paroxysmal nocturnal dyspnea, Rheumatic Fever, Syncope Endocrine: Reports: As per HPI. Denies: Fatigue, Heat or cold intolerance, Polydipsia, Polyuria Gastrointestinal: Reports: As per HPI, Vomiting. Denies: Abdominal pain, Constipation, Diarrhea, Hematemesis, Hematochezia, Melena, Nausea Genitourinary: Reports: As per HPI. Denies: Dysuria, Frequency, Hematuria, Incontinence, Retention, Testicular pain, Testicular mass, Urgency Musculoskeletal: Reports: As per HPI. Denies: Arthralgia, Back pain, Gout, Joint swelling, Myalgia, Neck pain Skin: Reports: As per HPI. Denies: Bruising, Change in color, Change in hair/nails, Lesions, Pruritus, Rash Neurological: Reports: As per HPI. Denies: Abnormal gait, Confusion, Headache, Numbness, Paresthesias, Seizure, Tingling, Tremors, Vertigo, Weakness Psychiatric: Reports: As per HPI. Denies: Anxiety, Auditory hallucinations, Depression, Homicidal thoughts, Suicidal thoughts, Visual hallucinations Hematological/Lymphatic: Reports: As per HPI. Denies: Anemia, Blood Clots, Easy bleeding, Easy bruising, Swollen glands Past Medical History - SOCIAL HISTORY Smoking Status: Never smoker Alcohol Use: None Drug Use: None - RESPIRATORY Hx Respiratory Disorders: Yes Hx Asthma: Yes (seasonal) Hx Bronchitis: Yes Comment:: frequent sinus infections - CARDIOVASCULAR Hx Cardio Disorders: Yes Hx Hypertension: Yes - NEURO Hx Neuro Disorders: Yes Hx Headaches: Yes (cluster) - GI Hx GI Disorders: No - Hx Genitourinary Disorders: No - ENDOCRINE Hx Endocrine Disorders: No Hx Diabetes: No Hx Thyroid Disease: No - MUSCULOSKELETAL Hx Musculoskeletal Disorders: Yes Hx Back Injury: Yes - PSYCH Hx Psych Problems: No - HEMATOLOGY/ONCOLOGY Hx Hematology/Oncology Disorders: No Family Medical History Any Significant Family History?: Yes Hx Diabetes: Grandparents Hx Heart Disease: Grandparents Physical Exam - General General Appearance: Alert, Oriented x3, Cooperative, No acute distress - Head Head exam: Normal inspection - Eye Eye exam: Normal appearance, PERRL Pupils: Normal accommodation - ENT ENT exam: Normal exam, Mucous membranes moist, Normal external ear exam, Normal orophraynx, TM's normal bilaterally Ear exam: Normal external inspection. negative: External canal tenderness Nasal Exam: Normal inspection. negative: Discharge, Sinus tenderness Mouth exam: Normal external inspection, Tongue normal Teeth exam: Normal inspection. negative: Dental caries Throat exam: Normal inspection. negative: Tonsillar erythema, Tonsillar exudate - Neck Neck exam: Normal inspection, Full ROM. negative: Tenderness - Respiratory Respiratory exam: Normal lung sounds bilaterally. negative: Respiratory distress - Cardiovascular Cardiovascular Exam: Regular rate, Normal rhythm, Normal heart sounds - GI/Abdominal GI/Abdominal exam: Soft, Normal bowel sounds. negative: Tenderness - Rectal Rectal exam: Deferred - exam: Deferred - Extremities Extremities exam: Normal inspection, Full ROM, Normal capillary refill. negative: Tenderness - Back Back exam: Reports: Normal inspection, Full ROM. Denies: Muscle spasm, Rash noted, Tenderness - Neurological Neurological exam: Alert, Normal gait, Oriented X3, Reflexes normal - Psychiatric Psychiatric exam: Normal affect, Normal mood - Skin Skin exam: Dry, Intact, Normal color, Warm Course Vital Signs 03/21/19 08:23 Temperature 98.1 F Pulse Rate 80 Respiratory 16 Rate Blood Pressure 130/87 Pulse Ox 95 Disposition Clinical Impression: Viral syndrome Disposition: Home, Self-Care Condition: (1) Good Instructions: Gastroenteritis (ED), Acute Nausea and Vomiting (ED) Additional Instructions: follow up with family Dr in 5 days sooner if worse tylenol or motrin for pain Forms: Patient Portal Access Time of Disposition: 09:12 Quality - Quality Measures Quality Measures: N/A - Blood Pressure Screening Does Patient Have Any of the Following: No Blood Pressure Classification: Pre-Hypertensive BP Reading Systolic Measurement: 130 Diastolic Measurement: 87 Screening for High Blood Pressure: < Pre-Hypertensive BP, F/U Documented > [G8950] Pre-Hypertensive Follow-up Interventions: Referral to alternative/primary care provider.
[2019-03-21] MEDS ORDERED: ONDANSETRON 4 MG ODT TABLET SL ONE (08:43)
[2019-03-21 08:55] LABS: INFLUENZA A NEGATIVE (NEGATIVE)
[2019-03-21 08:56] LABS: INFLUENZA B NEGATIVE (NEGATIVE)
--- NOTE | 2019-03-21 09:56 | Emergency Department Record ---
History of Present Illness - General Chief complaint: Vomiting Stated complaint: VOMITING Time Seen by Provider: 03/21/19 08:34 Source: Patient, RN notes reviewed Mode of Arrival: Ambulatory - History of Present Illness Associated Symptoms: Cough, Nausea/vomiting - Related Data Home Medications Medication Instructions Recorded Confirmed Last Taken Naltrexone HCl/Bupropion HCl 1 each PO DAILY 03/21/19 03/21/19 03/21/19 [Contrave ER 8-90 mg Tablet] Previous Rx's Medication Instructions Recorded Ondansetron HCl [Zofran] 4 mg PO RESP.BID #14 tablet 03/21/19 Allergies Allergy/AdvReac Type Severity Reaction Status Date / Time Sulfa (Sulfonamide Allergy ANAPHYLAXIS Verified 03/21/19 08:27 Antibiotics) Travel/Exposure Screening - Travel/Exposure Within Last 30 Days Have you traveled within the last 30 days?: No Review of Systems Constitutional: Reports: As per HPI. Denies: Chills, Fever, Malaise, Night sweats, Weakness, Weight change Eyes: Reports: As per HPI. Denies: Eye discharge, Eye pain, Photophobia, Vision change ENT: Reports: As per HPI, Congestion. Denies: Dental pain, Ear pain, Epistaxis, Hearing loss, Throat pain Respiratory: Reports: As per HPI, Cough. Denies: Dyspnea, Hemoptysis, Stridor, Wheezes Cardiovascular: Reports: As per HPI. Denies: Arrhythmia, Chest pain, Dyspnea on exertion, Edema, Murmurs, Orthopnea, Palpitations, Paroxysmal nocturnal dyspnea, Rheumatic Fever, Syncope Endocrine: Reports: As per HPI. Denies: Fatigue, Heat or cold intolerance, Polydipsia, Polyuria Gastrointestinal: Reports: As per HPI, Vomiting. Denies: Abdominal pain, Constipation, Diarrhea, Hematemesis, Hematochezia, Melena, Nausea Genitourinary: Reports: As per HPI. Denies: Dysuria, Frequency, Hematuria, Incontinence, Retention, Testicular pain, Testicular mass, Urgency Musculoskeletal: Reports: As per HPI. Denies: Arthralgia, Back pain, Gout, Joint swelling, Myalgia, Neck pain Skin: Reports: As per HPI. Denies: Bruising, Change in color, Change in hair/nails, Lesions, Pruritus, Rash Neurological: Reports: As per HPI. Denies: Abnormal gait, Confusion, Headache, Numbness, Paresthesias, Seizure, Tingling, Tremors, Vertigo, Weakness Psychiatric: Reports: As per HPI. Denies: Anxiety, Auditory hallucinations, Depression, Homicidal thoughts, Suicidal thoughts, Visual hallucinations Hematological/Lymphatic: Reports: As per HPI. Denies: Anemia, Blood Clots, Easy bleeding, Easy bruising, Swollen glands Past Medical History - SOCIAL HISTORY Smoking Status: Never smoker Alcohol Use: None Drug Use: None - RESPIRATORY Hx Respiratory Disorders: Yes Hx Asthma: Yes (seasonal) Hx Bronchitis: Yes Comment:: frequent sinus infections - CARDIOVASCULAR Hx Cardio Disorders: Yes Hx Hypertension: Yes - NEURO Hx Neuro Disorders: Yes Hx Headaches: Yes (cluster) - GI Hx GI Disorders: No - Hx Genitourinary Disorders: No - ENDOCRINE Hx Endocrine Disorders: No Hx Diabetes: No Hx Thyroid Disease: No - MUSCULOSKELETAL Hx Musculoskeletal Disorders: Yes Hx Back Injury: Yes - PSYCH Hx Psych Problems: No - HEMATOLOGY/ONCOLOGY Hx Hematology/Oncology Disorders: No Family Medical History Any Significant Family History?: Yes Hx Diabetes: Grandparents Hx Heart Disease: Grandparents Course Vital Signs 03/21/19 03/21/19 08:23 09:45 Temperature 98.1 F 98.3 F Pulse Rate 80 Pulse Rate [ 91 H Pulse Ox Probe] Respiratory 16 16 Rate Blood Pressure 130/87 Blood Pressure 123/85 [Left Arm] Pulse Ox 95 100 Medical Decision Making - Lab Data Lab Results 03/21/19 Range/Units 08:27 Influenza Type A Ag Negative (NEGATIVE) Influenza Type B Ag Negative (NEGATIVE) Disposition Clinical Impression: Viral syndrome Disposition: Home, Self-Care Condition: (1) Good Instructions: Gastroenteritis (ED), Acute Nausea and Vomiting (ED) Additional Instructions: follow up with family Dr in 5 days sooner if worse tylenol or motrin for pain Prescriptions: Ondansetron HCl [Zofran] 4 mg PO RESP.BID #14 tablet Forms: Patient Portal Access Quality - Quality Measures Quality Measures: N/A - Blood Pressure Screening Does Patient Have Any of the Following: No Blood Pressure Classification: Pre-Hypertensive BP Reading Systolic Measurement: 130 Diastolic Measurement: 87 Screening for High Blood Pressure: < Pre-Hypertensive BP, F/U Documented > [G8950] Pre-Hypertensive Follow-up Interventions: Referral to alternative/primary care provider.
== END 2019-03-21 10:09 | disposition home or self-care (01) ==
LOC: ER 08:15
DX: B34.9 Viral infection, unspecified (principal); R11.2 Nausea with vomiting, unspecified; I10 Essential (primary) hypertension
CPT/HCPCS: 87400; 99283

== ENCOUNTER 2019-03-24 22:44 | Emergency (ER) | payer BC ==
[2019-03-24] MEDS ORDERED: ONDANSETRON HCL IV 4 MG/2 ML VIAL IVP ONE (23:01)
--- NOTE | 2019-03-24 23:07 | Emergency Department Record ---
History of Present Illness - General Chief complaint: Vomiting Stated complaint: VOMITING Time Seen by Provider: 03/24/19 22:46 Source: Patient Mode of Arrival: Ambulatory Limitations: No limitations - History of Present Illness Initial comments: 38 yo male returns to the ED for evaluation of nausea and vomiting symptoms that began 3 hours ago. Patient was seen for cough, nausea, and vomiting symptoms 3 days ago, received oral Zofran (non-ODT) which he has been unable to tolerate this evening. Patient denies abdominal pain symptoms, denies urinary symptoms, flank pain, or loose stools on examination. Patient was tested for influenza on his previous visit which was found to be negative. Patient denies health problems at his baseline. MD complaint: Nausea, Vomiting Onset/Timin -: Hour(s) Description of Vomiting: Bilious, Food contents Associated Abdominal Pain: Yes Location: Diffuse Radiation: None Severity scale (1-10): 7 Quality: Cramping Consistency: Intermittent Improves with: None Worsens with: Movement Associated Symptoms: Cough, Nausea/vomiting - Related Data Previous Rx's Medication Instructions Recorded Ondansetron HCl [Zofran] 4 mg PO RESP.BID #14 tablet 03/21/19 Hyoscyamine Sulfate [Levsin Odt] 0.125 mg PO Q8H PRN #15 tab.subl 03/25/19 Ondansetron [Zofran Odt] 4 mg PO Q6H PRN #15 tab.rapdis 03/25/19 Allergies Allergy/AdvReac Type Severity Reaction Status Date / Time Sulfa (Sulfonamide Allergy ANAPHYLAXIS Verified 03/24/19 22:58 Antibiotics) Travel/Exposure Screening - Travel/Exposure Within Last 30 Days Have you traveled within the last 30 days?: No - Travel/Exposure Within Last Year Have you traveled outside the [place] in the last year?: No - Additonal Travel/Exposure Details Have you been exposed to anyone with a communicable illness?: No - Travel Symptoms Symptom Screening: Vomiting Review of Systems Constitutional: Denies: Chills, Fever, Malaise, Night sweats Eyes: Denies: Eye discharge, Eye pain ENT: Denies: Congestion, Ear pain, Epistaxis Respiratory: Denies: Cough, Dyspnea Cardiovascular: Denies: Chest pain, Dyspnea on exertion Endocrine: Denies: Fatigue, Heat or cold intolerance Gastrointestinal: Reports: Abdominal pain, Nausea, Vomiting Genitourinary: Denies: Incontinence, Retention Musculoskeletal: Denies: Arthralgia, Back pain Skin: Denies: Bruising, Change in color Neurological: Denies: Abnormal gait, Confusion, Headache, Seizure Psychiatric: Denies: Anxiety Hematological/Lymphatic: Denies: Anemia, Blood Clots Past Medical History - SOCIAL HISTORY Smoking Status: Never smoker Alcohol Use: None Drug Use: None - RESPIRATORY Hx Respiratory Disorders: Yes Hx Asthma: Yes (seasonal) Hx Bronchitis: Yes Comment:: frequent sinus infections - CARDIOVASCULAR Hx Cardio Disorders: Yes Hx Hypertension: Yes - NEURO Hx Neuro Disorders: Yes Hx Headaches: Yes (cluster) - GI Hx GI Disorders: No - Hx Genitourinary Disorders: No - ENDOCRINE Hx Endocrine Disorders: No Hx Diabetes: No Hx Thyroid Disease: No - MUSCULOSKELETAL Hx Musculoskeletal Disorders: Yes Hx Back Injury: Yes - PSYCH Hx Psych Problems: No - HEMATOLOGY/ONCOLOGY Hx Hematology/Oncology Disorders: No Family Medical History Any Significant Family History?: No Hx Diabetes: Grandparents Hx Heart Disease: Grandparents Physical Exam - General General Appearance: Alert, Oriented x3, Cooperative, Mild distress, Other (Patient is conversational on examination, no distress is noted.) Limitations: No limitations - Head Head exam: Atraumatic, Normocephalic, Normal inspection Head exam detail: negative: Abrasion, Contusion, Diaz's sign, General tenderness, Hematoma, Laceration - Eye Eye exam: Normal appearance. negative: Conjunctival injection, Periorbital swelling, Periorbital tenderness, Scleral icterus - ENT Ear exam: negative: Auricular hematoma, Auricular trauma Nasal Exam: negative: Active bleeding, Discharge, Dried blood, Foreign body Mouth exam: negative: Drooling, Laceration, Muffled voice, Tongue elevation - Neck Neck exam: Normal inspection. negative: Meningismus, Tenderness - Respiratory Respiratory exam: Normal lung sounds bilaterally. negative: Rales, Respiratory distress, Rhonchi, Stridor - Cardiovascular Cardiovascular Exam: Regular rate, Normal rhythm, Normal heart sounds - GI/Abdominal GI/Abdominal exam: Soft, Other (Abdomen is non-tender on examination). negative: Rebound, Rigid, Tenderness - Rectal Rectal exam: Deferred - exam: Deferred - Extremities Extremities exam: Normal inspection. negative: Pedal edema, Tenderness - Back Back exam: Denies: CVA tenderness (R), CVA tenderness (L) - Neurological Neurological exam: Alert, Normal gait, Oriented X3 - Psychiatric Psychiatric exam: Normal affect, Normal mood - Skin Skin exam: Normal color. negative: Abrasion Type of lesion: negative: abrasion Course Vital Signs 03/24/19 22:49 Temperature 97.7 F Pulse Rate [ 120 H Pulse Ox Probe] Respiratory 20 Rate Blood Pressure 117/82 [Left Arm] Pulse Ox 97 - Reevaluation(s) Reevaluation #1: 03/25/19 00:02 Laboratory studies were reviewed and appear grossly unremarkable for an acute process except for the following: WBC 20.1 86% Neutrophils CO2 20 AG 18 patient was updated on all results, reports improvement in his symptoms. Patient is going for CT imaging of the abdomen and pelvis at this time. Reevaluation #2: 03/25/19 00:38 CT Abdomen and Pelvis: No acute process 2nd Liter NS is infusing at this time. Reevaluation #3: 03/25/19 01:12 Patient was reassessed following completion of his 2nd L NS, reports that he is feeling much improved and appears stable for discharge at this time. Medical Decision Making - Lab Data Result diagrams: 03/24/19 23:05 03/24/19 23:05 Disposition Disposition: Discharge Clinical Impression: Nausea vomiting and diarrhea Disposition: Home, Self-Care Condition: (2) Stable Instructions: Acute Nausea and Vomiting (ED) Additional Instructions: Return to ED if your symptoms worsen or if you have any concerns. Zofran and Levsin as directed. Follow-up with your family doctor in 3-5 days as directed. Prescriptions: Hyoscyamine Sulfate [Levsin Odt] 0.125 mg PO Q8H PRN #15 tab.subl PRN Reason: Abdominal Pain Ondansetron [Zofran Odt] 4 mg PO Q6H PRN #15 tab.rapdis PRN Reason: Nausea/Vomiting Forms: Patient Portal Access Time of Disposition: 00:04 Quality - Quality Measures Quality Measures: N/A - Blood Pressure Screening Does Patient Have Any of the Following: No Blood Pressure Classification: Pre-Hypertensive BP Reading Systolic Measurement: 128 Diastolic Measurement: 84 Screening for High Blood Pressure: < Pre-Hypertensive BP, F/U Documented > [G8950] Pre-Hypertensive Follow-up Interventions: Referral to alternative/primary care provider.
[2019-03-24] MEDS: 0.9 % SODIUM CHLORIDE 1000ML 1,000 ML IV SCH (23:11)
[2019-03-24 23:24] LABS: HEMATOCRIT 49.7 % (42.0-52.0); HEMOGLOBIN 16.5 gm/dl (14.0-18.0); MEAN CELL VOLUME 81.2 fl (81-97); MEAN CORPUSCULAR HGB CONC 33.2 g/dl (32-36); MEAN PLATELET VOLUME 9.8 fl (7.4-10.4); PLATELET COUNT 383 K/uL (130-400); RED BLOOD COUNT 6.12 M/uL (4.40-5.70); RED CELL DISTRIBUTION WIDTH 14.3 % (11.5-14.5)
[2019-03-24 23:29] LABS: BLOOD UREA NITROGEN 16 mg/dL (6-20); EST GLOMERULAR FILTRATION RATE > 60 mL/min; LIPASE 29 U/L (13-60); TOTAL PROTEIN 8.1 g/dL (6.6-8.7)
[2019-03-24 23:31] LABS: GLUCOSE,RANDOM 130 mg/dL (74-109); MEAN CORPUSCULAR HEMOGLOBIN 26.9 pg (27-33)
[2019-03-24 23:32] LABS: WHITE BLOOD COUNT W/O DIFF 20.1 K/uL (4.2-12.2)
[2019-03-24 23:34] LABS: ALB/GLOB RATIO 1.3 (1.1-1.8); ALBUMIN 4.5 g/dL (4.0-5.0); ALKALINE PHOSPHATASE 93 U/L (40-129); ALT/SGPT 43 U/L (<41); AST/SGOT 27 U/L (10.0-50.0)
[2019-03-24] MEDS ORDERED: 0.9 % SODIUM CHLORIDE 1000ML 1,000 ML IV SCH (23:45)
[2019-03-24 23:58] LABS: PLATELET ESTIMATE NORMAL (NORMAL)
[2019-03-25] MEDS: 0.9 % SODIUM CHLORIDE 1000ML 1,000 ML IV SCH (00:30)
--- NOTE | 2019-03-25 00:33 | CT SCAN REPORT ---
EXAMINATION: CT Abdomen and Pelvis with IV Contrast EXAM DATE: 03/25/2019 12:27 AM TECHNIQUE: CT imaging of the abdomen and pelvis was performed with intravenous contrast. Coronal and sagittal images were reconstructed. IV Contrast: The amount and type of contrast are recorded in the medical record. INDICATION: nausea, vomiting, abdominal pain COMPARISON: None ENCOUNTER: Not applicable CT ABDOMEN AND PELVIS FINDINGS: Lung Bases: Included extent of the lung bases are clear. Hepatobiliary: The liver has a normal size with a smooth surface. The hepatic and portal veins appear patent. Normal gallbladder. Pancreas: The pancreas is normal. Spleen: The spleen is not enlarged. Adrenals: The adrenal glands are normal. Kidneys, Ureters, & Bladder: Both kidneys have a normal size and there is no hydronephrosis. Both ur eters have a normal caliber and the urinary bladder is unremarkable. Gastrointestinal: The stomach and small bowel are normal with no obstruction or inflammation. Normal appendix. The large bowel is normal. Reproductive Organs: Unremarkable Lymphatic System: There is no adenopathy within the abdomen or pelvis. Vasculature: Normal caliber abdominal aorta. The mesenteric vessels are patent. Peritoneum: No free fluid, free air, or inflammation Abdominal Wall & Musculoskeletal: No suspicious bone lesions. IMPRESSION: 1. No acute process of the abdomen or pelvis. Dictated by: Rajat Otero MD on 03/25/2019 12:30 AM. .
[2019-03-25] MEDS ORDERED: HYOSCYAMINE SULFATE ODT 0.125 MG TAB.SUBL SL ONE (00:35)
== END 2019-03-25 01:21 | disposition home or self-care (01) ==
LOC: ER 22:44
DX: R11.2 Nausea with vomiting, unspecified (principal); R19.7 Diarrhea, unspecified; I10 Essential (primary) hypertension
CPT/HCPCS: 99284 ×2; 96374; 96361; 83690; 80053; 85027; 74177; Q9967; J1980; J2405; J7030